=== PATIENT | male | born 2000 | race Caucasian/White ===

== ENCOUNTER 2024-08-29 13:45 | Emergency (ER) | payer OTHER ==
[~2024-08-29] VITALS: Ht 172.7 cm; Wt 72.7 kg
[2024-08-29 13:50] VITALS: BP 143/68; PULSE 69; RESP 18; TEMP 97.8; O2SAT 97
== END 2024-08-29 16:23 | disposition left against medical advice (07) ==
LOC: ER 13:46
DX: L03.116 Cellulitis of left lower limb (principal); L03.115 Cellulitis of right lower limb; Z53.21 Procedure and treatment not carried out due to patient leaving prior to being seen by health care provider

== ENCOUNTER 2025-03-09 20:48 | Emergency (ER) | payer OTHER ==
[~2025-03-09] VITALS: Ht 175.3 cm; Wt 72.7 kg
[2025-03-09 21:10] VITALS: BP 152/90; PULSE 77; TEMP 97.8; O2SAT 99
[2025-03-09] MEDS ORDERED: PERM60CR27 TOP (21:33)
--- NOTE | 2025-03-09 21:33 | Physician Documentation ---
History of Present Illness ~ Chief Complaint: See Chief Complaint Stated Complaint: SEE CHIEF Time Seen by MD: 21:30 HPI Homeless patient presents complaining of lice in his head. States that he has been sleeping on the ground recently. Reports itchiness he denies seen any bugs but has been exposed to lice recently. Day of Onset: Mar 09, 2025 Medication Reconciliation Allergies: Coded Allergies: No Known Allergies (Unverified , 03/09/25) Scheduled Permethrin 5% Cream* (Elimite 5% Cream*), 1 APPLIC TOP ONCE Review of Systems All Other Systems at this time: Reviewed and Negative ROS As stated above in the HPI, otherwise all systems are reviewed and negative. Physical Exam Vital Signs: Temperature: 97.8, Source: Temporal, Heart Rate: 77, Respiratory Rate: 16, BP: 152/90, Pulse Oximetry: 99, Weight: 72.730 Oxygen Flow Rate: 0 Physical Exam General: Alert, no apparent distress. HEENT: PERRL, EOMI, no injection, moist mucous membranes. Neck: Full range of motion. Skin: Normal color, warm and dry. No edema, no ecchymosis. Progress Results/Orders Results/Orders Completed Orders - BRIAN GUY NP Permethrin Topical Cream (Elimite Cream (03/09/25 21:30) Vital Signs 03/09/25 03/09/25 21:10 21:52 Temp 97.8 Pulse 77 Resp 16 16 B/P (MAP) 152/90 Pulse Ox 99 O2 Flow Rate 0 Medical Decision Making Findings I could not appreciate any signs of lice however based on patient's so soccer socioeconomic circumstances it behooves me to treat him for the suspected lice infestation. ED nurse also provided him with a food Differential Dx:Considerations: Include: Abscess, AIDS/HIV, Anthrax (cutaneous), Atopic dermatitis, Candidiasis, Contact dermatitis, Drug reaction, Erythema multiforme, Erysipelas, Gangrene, Herpes zoster, Herpes simplex, Hidradenitis suppurativa, Impetigo, Intertrigo, Lymes disease, Molluscum contagiosum, Osteomyelitis, Pediculosis, Pityriasis rosea, Psoriaisis, RMSF, Rosacea, Scabies, Scarlet fever, Tinea, Urticaria, Varicella, Viral exanthema, Other Departure Disposition: 01 HOME / SELF CARE / HOMELESS Impression: Primary Impression: Lice infestation Condition: Stable Discharge Instructions: Lice, Adult Referrals: NO PRIMARY CARE PROVIDER (PCP) Prescriptions Permethrin 5% Cream* (Elimite 5% Cream*) 60 Gm Cream.gm. 1 APPLIC TOP ONCE, #60 GM massage into skin from head to soles of feet one time, leave on for 8-14 hours then remove by thorough washing Prov: BRIAN GUY NP 03/09/25 Education Educated: Patient Educated regarding: diagnosis Signature Scribe Signature: f Attestation: Scribed for Brian Guy Regional Program Manager by Brian Poe NP . 03/09/25 23:05 BRIAN GUY NP Mar 09, 2025 21:33
[2025-03-09 21:52] VITALS: RESP 16
[2025-03-09] MEDS: Permethrin Cream 60gm TP ONE (22:08)
== END 2025-03-09 22:12 | disposition home or self-care (01) ==
LOC: ER 20:48
DX: B85.2 Pediculosis, unspecified (principal); Z79.899 Other long term (current) drug therapy; Z59.00 Homelessness unspecified
CPT/HCPCS: 99283

== ENCOUNTER 2025-03-11 09:20 | Emergency (ER) | payer SELFPAY ==
[~2025-03-11] VITALS: Ht 175.3 cm; Wt 78.1 kg
[~2025-03-11 09:20] MED LIST: PERM60CR27 TOP
[2025-03-11 09:34] VITALS: BP 131/78; PULSE 91; RESP 20; O2SAT 98
--- NOTE | 2025-03-11 10:04 | Physician Documentation ---
History of Present Illness ~ Chief Complaint: See Chief Complaint Stated Complaint: MH Time Seen by MD: 09:44 Source: patient Mode of Arrival: POV Exam Limitations: no limitations HPI Patient presents secondary to wanting social organization professor. He states he needs food, clean and were, hygiene supplies, scissors to cut his hair. He states he is schizophrenic. No suicidal ideation. No homicidal ideation. Staying of the admission. States that he has applied for social organization professor in [place] but is awaiting his benefits. No other medical complaints. Medication Reconciliation Allergies: Coded Allergies: No Known Allergies (Unverified , 03/11/25) Scheduled Permethrin 5% Cream* (Elimite 5% Cream*), 1 APPLIC TOP ONCE Past Medical History Past Medical History: *PSYCH* Past Surgical History: noncontributory Smoking Status: Current every day smoker Lives In: Homeless Occupation: unemployed Review of Systems ROS Review of systems negative except documented in HPI. Physical Exam Vital Signs: RN Vital Signs have been reviewed: Yes, Temperature: 98.4, Source: Oral, Heart Rate: 91, Respiratory Rate: 20, BP: 131/78, Pulse Oximetry: 98, Weight: 78.100 Oxygen Flow Rate: 0 Pulse Oximetry Reflects: adequate oxygenation Physical Exam General: Awake, alert, oriented. No apparent distress. Speaking in full sentences. Respiratory: Lungs are clear to auscultation bilaterally. No respiratory distress. Chest: Normal shape and size. No accessory muscle use. Psychiatric: Normal mood and affect. Good eye contact. Skin: Normal color. Warm and dry. Progress Results/Orders Results/Orders Completed Orders - SANDY LIM GENERAL DENTIST/OWNER * Miscellaneous Nursing Orders (03/11/25 10:05) Vital Signs 03/11/25 03/11/25 09:34 10:17 Temp 98.4 98.4 Pulse 91 Resp 20 B/P (MAP) 131/78 Pulse Ox 98 O2 Flow Rate 0 Medical Decision Making Findings Patient presents secondary to wanting social organization professor such as food, clean cl othing and hygiene supplies. He has no medical complaints. States past medical history of schizophrenia. No current homicidal or suicidal ideation. We will be provided with a sandwich and was supplies we can offer. He will be provided with a list of resources, again. His previous ER visit was reviewed. He had complaints of itching and exposure to lice. Was given prescription for permethrin cream. Did not use this. No longer complaining of pruritus. He was also given resources that time as well. Differential Dx:Considerations: Include: Anxiety, Panic disorder, Personality disorder, Schizophrenia, Substance abuse Departure Time of Disposition: 10:03 Impression: Primary Impression: General medical exam Condition: Stable Additional Instructions: Please establish with a primary care provider. You are being provided a list of social organization professor available in [place]. Please utilize these services for things like food, clothing. Referrals: NO PRIMARY CARE PROVIDER (PCP) Education Educated: Patient Educated regarding: diagnosis, treatment Signature Scribe Signature: no scribe Attestation: The note accurately reflects work and decisions made by me.Sandy Poe NP 03/11/25 18:10 This note was created with the assistance of voice recognition software whereby errors in grammar, syntax, and/or spelling may have occurred despite active proofreading efforts by the author. Please do not hesitate to contact the provider for clarification or for questions regarding the content of this document. SANDY LIM NP Mar 11, 2025 10:04
[2025-03-11 10:17] VITALS: TEMP 98.4
[2025-03-12] MEDS ORDERED: CLOT15CR73 TOP (22:18)
== END 2025-03-11 10:19 | disposition home or self-care (01) ==
LOC: ER 09:20
DX: Z00.00 Encounter for general adult medical examination without abnormal findings (principal); F20.9 Schizophrenia, unspecified; F17.200 Nicotine dependence, unspecified, uncomplicated; Z59.00 Homelessness unspecified; Z79.899 Other long term (current) drug therapy; Z56.0 Unemployment, unspecified
CPT/HCPCS: 99282

== ENCOUNTER 2025-03-12 20:37 | Emergency (ER) | payer MEDICAID ==
[~2025-03-12] VITALS: Ht 175.3 cm; Wt 72.7 kg
[2025-03-12 20:46] VITALS: BP 140/83; PULSE 75; RESP 16; TEMP 98.1; O2SAT 99
[2025-03-12] MEDS ORDERED: CLOT15CR73 TOP (22:18)
--- NOTE | 2025-03-12 22:18 | Physician Documentation ---
History of Present Illness ~ Chief Complaint: Foot pain Stated Complaint: FEET PAIN Time Seen by MD: 21:08 HPI 24-year-old male at times unsheltered and disheveled appearing. Reports that both his feet are painful and with infection. Reports that he has difficulty keeping them clean and obtaining clean socks. Reports that his shoes or do not fit well. Additionally requesting additional resources such as food and clothing. Otherwise no acute findings. Tetanus witin 5 years: No Medication Reconciliation Allergies: Coded Allergies: No Known Allergies (Unverified , 03/11/25) Scheduled Permethrin 5% Cream* (Elimite 5% Cream*), 1 APPLIC TOP ONCE Past Medical History Past Medical History: *PSYCH* Past Surgical History: noncontributory Lives In: Homeless Occupation: unemployed Review of Systems All Other Systems at this time: Reviewed and Negative Musculoskeletal Bilateral foot pain Physical Exam Vital Signs: Temperature: 98.1, Heart Rate: 75, Respiratory Rate: 16, BP: 140/83, Pulse Oximetry: 99, Weight: 72.730 Oxygen Flow Rate: 0 General Appearance: alert General Appearance Somnolent and disheveled Respiratory: normal breath sounds Cardiovascular: normal peripheral pulses Feet: soft tissue tenderness Feet Plantar surface bilaterally with mild erythema, mild calluses, on cleansed with a evidence of tinea. No cellulitis or abscess present Skin: normal color Neurologic: oriented x4 Psychiatric: other (Blunted affect) Progress Results/Orders Results/Orders Orders - MATTHEW CRUZ Clotrimazole Topical Cream (Lotrimin Cre (03/12/25 22:10) Vital Signs 03/12/25 20:46 Temp 98.1 Pulse 75 Resp 16 B/P (MAP) 140/83 Pulse Ox 99 O2 Flow Rate 0 Medical Decision Making Additional Comment 24-year-old male with a times and mcc requiring resources in the emergency department. Specific to his chief complaint tonight we will go ahead and provide warm water and soap cleansing for him prior to clotrimazole application and clean socks. Patient additionally provided food and clothing resources. He is safely discharged in the emergency department. Patient has tinea pedis to both feet is without history was, cellulitis and/or abscess. Departure Disposition: 01 HOME / SELF CARE / HOMELESS Impression: Primary Impression: Tinea pedis of both feet Additional Impression: Sheltered unhoused person Condition: Stable Discharge Instructions: Athlete's Foot, [id number] Additional Instructions: Please apply topical Antifungal twice daily and do your best to keep feet clean. [facility] examination. Follow up with the primary care physician and to return to the emergency department if i nfection worsens. Referrals: NO PRIMARY CARE PROVIDER (PCP) Prescriptions Clotrimazole/Betamet Diprop Cream* (Lotrisone Cream*) 15 Gm Tube 1 APPLIC TOP Q12H for 7 Days, #30 GM apply to affected area(s) Prov: MATTHEW CRUZ PAC 03/12/25 Education Educated: Patient Educated regarding: diagnosis, treatment Signature Scribe Signature: . Attestation: . MATTHEW CRUZ PAC Mar 12, 2025 22:18
[2025-03-12] MEDS ORDERED: clotrimazole topical cream 15gm tube TP ONE (22:30)
== END 2025-03-12 22:32 | disposition home or self-care (01) ==
LOC: ER 20:39
DX: B35.3 Tinea pedis (principal); Z59.00 Homelessness unspecified
CPT/HCPCS: 99283

== ENCOUNTER 2025-03-13 03:14 | Emergency (ER) | payer MEDICAID ==
[~2025-03-13] VITALS: Ht 175.3 cm; Wt 72.7 kg
[~2025-03-13 03:14] MED LIST changes: +CLOT15CR73 TOP
--- NOTE | 2025-03-13 03:27 | Physician Documentation ---
History of Present Illness ~ General Stated Complaint: MEDICAL CLEARANCE REHAB Time Seen by MD: 03:25 History of Present Illness Initial Comments Patient presents to the emergency room requesting medical clearance to go to rehab facility. No other complaints other than he does not like to sleep at the [place] Medication Reconciliation Allergies: Coded Allergies: No Known Allergies (Unverified , 03/11/25) Scheduled Clotrimazole/Betamet Diprop Cream* (Lotrisone Cream*), 1 APPLIC TOP Q12H Permethrin 5% Cream* (Elimite 5% Cream*), 1 APPLIC TOP ONCE Past Medical History Past Medical History: *PSYCH* Past Surgical History: noncontributory Lives In: Homeless Occupation: unemployed Review of Systems ROS All review of systems negative except as per HPI Physical Exam Physical Exam Physical Exam General: Patient is awake, alert, oriented x4 in no acute distress Head: Normocephalic and atraumatic. Eyes: Conjunctival normal. EOMI. PERRL. ENT: Mucous membranes moist. Neck: Supple, trachea is midline. Chest: Clear to auscultation bilaterally without rales, rhonchi, or wheezes. There is no accessory muscle use or retractions. Cardiac: RRR without murmurs, gallops, or rubs. Medical Decision Making Findings Patient presents to the emergency room requesting food and medical clearance to go to rehab facility. Vital signs are stable and he had not feel patient requires emergent labs or imaging. Departure Disposition: HOME / SELF CARE / HOMELESS Impression: Primary Impression: General medical exam Condition: Stable Discharge Instructions: General Discharge Instructions Additional Instructions: you are medically cleared to go to rehab Referrals: NO PRIMARY CARE PROVIDER (PCP) Signature Scribe Signature: No scribe Attestation: The note accurately reflects work and decisions made by me.Sascha Garcia MD 03/13/25 03:27 SASCHA GARCIA MD Mar 13, 2025 03:27
[2025-03-13 03:28] VITALS: BP 129/82; PULSE 64; RESP 19; TEMP 97.9; O2SAT 99
== END 2025-03-13 03:44 | disposition home or self-care (01) ==
LOC: ER 03:15
DX: Z00.00 Encounter for general adult medical examination without abnormal findings (principal)
CPT/HCPCS: 99282

== ENCOUNTER 2025-03-14 20:21 | Emergency (ER) | payer MEDICAID ==
[~2025-03-14] VITALS: Ht 175.3 cm; Wt 80.0 kg
[2025-03-14 20:29] VITALS: BP 114/75; PULSE 98; RESP 18; TEMP 98; O2SAT 98
--- NOTE | 2025-03-15 12:54 | Physician Documentation ---
History of Present Illness ~ General Chief Complaint: Multiple Medical Complaints Stated Complaint: ABD PAIN Time Seen by MD: 22:56 History of Present Illness Initial Comments 24-year-old male who presents to the emergency department with multiple vague medical complaints. MSE exam performed and completed triage. Primary chief complaint is food and security. He understands to await placement in the main ED for comprehensive evaluation. Medication Reconciliation Allergies: Coded Allergies: No Known Allergies (Unverified , 03/15/25) Scheduled Clotrimazole/Betamet Diprop Cream* (Lotrisone Cream*), 1 APPLIC TOP Q12H Permethrin 5% Cream* (Elimite 5% Cream*), 1 APPLIC TOP ONCE Past Medical History Past Medical History: *PSYCH* Past Surgical History: noncontributory Smoking Status: Never smoker Lives In: Homeless Occupation: unemployed Review of Systems All Other Systems at this time: Reviewed and Negative Physical Exam Physical Exam Vital Signs: Temperature: 98.0, Heart Rate: 98, Respiratory Rate: 18, BP: 114/75, Pulse Oximetry: 98, Weight: 80.000 Oxygen Flow Rate: 0 General Appearance: alert, WD/WN, other (Disheveled) Head: normal inspection Pupils/EOM/Fundus: PERRLA Respiratory: no respiratory distress Chest: no accessory muscle use Neurologic: oriented x4 Psychiatric: anxiety Skin: normal color Progress Results/Orders Results/Orders Vital Signs 03/14/25 20:29 Temp 98.0 Pulse 98 Resp 18 B/P (MAP) 114/75 Pulse Ox 98 O2 Flow Rate 0 Medical Decision Making Differential Diagnosis CBC complete. Patient understands to wait for comprehensive ED evaluation to address food insecurities. Departure Disposition: LEFT AWOL/ELOPED Impression: Primary Impression: Food security Referrals: NO PRIMARY CARE PROVIDER (PCP) Signature Scribe Signature: . Attestation: . MATTHEW CRUZ PAC Mar 15, 2025 12:54
== END 2025-03-14 22:49 | disposition left against medical advice (07) ==
LOC: ER 20:21
DX: Z59.41 Food insecurity (principal)
CPT/HCPCS: 99282

== ENCOUNTER 2025-03-15 01:04 | Emergency (ER) | payer MEDICAID ==
[~2025-03-15] VITALS: Ht 175.3 cm; Wt 70.0 kg
[2025-03-15 01:10] VITALS: BP 124/70; PULSE 70; RESP 18; O2SAT 99
[2025-03-15 04:14] VITALS: TEMP 97
== END 2025-03-15 04:15 | disposition left against medical advice (07) ==
LOC: ER 01:05
DX: Z02.9 Encounter for administrative examinations, unspecified (principal); Z53.21 Procedure and treatment not carried out due to patient leaving prior to being seen by health care provider

== ENCOUNTER 2025-03-16 00:02 | Emergency (ER) | payer MEDICAID ==
[~2025-03-16] VITALS: Ht 175.3 cm; Wt 72.7 kg
[2025-03-16 00:23] VITALS: BP 124/106; PULSE 79; RESP 16; TEMP 98; O2SAT 98
== END 2025-03-16 01:32 | disposition left against medical advice (07) ==
LOC: ER 00:03
DX: M79.602 Pain in left arm (principal); M79.672 Pain in left foot; M79.671 Pain in right foot; Z53.21 Procedure and treatment not carried out due to patient leaving prior to being seen by health care provider